=== PATIENT | female | born 1985 | race Caucasian/White ===

== ENCOUNTER 2018-03-02 10:55 | Emergency (ER) | payer OTHER ==
[~2018-03-02] VITALS: Ht 149.9 cm; Wt 59.0 kg
[~2018-03-02 10:55] MED LIST: ACETAMINOPHEN-1 EAC1 PO; ALBUTEROL; AMOXICILLIN500 M1 PO; CARAFATE 1 GM TA1 GM PO; CELEXA 20 MG TA20 MG; CIPRO500 MG PO; CIPROFLOXACIN500 M1 PO; DOXYCYCLINE 10100 MG PO; FLAGYL500 MG PO; FLOMAX0.4 MG PO; HYDROCODON-ACE1 EACH PO; HYDROCODONE-AP1 EAC6 PO; HYDROCODONE-APA1 TA1 PO; IBUPROFEN 800800 M1 PO; LEVAQUIN 500 M500 M2 PO; NAPROSYN500 MG PO; NEURONTIN 400400 M1 PO; NOHOMEMEDICATIONS; NORCO 5-325 TA1 EACH PO; ONDANSETRON HCL4 M2 PO; PERCOCET 5-3251 EACH PO; PHENERGAN25 MG RECTAL; POTASSIUM CHLORIDE PO; PRENATAL PO; PROAIR HFA8.5 GM INH; PYRIDIUM100 M1 PO; REMERON15 MG PO; TRAZADONE; ULTRAM 50MG TAB50 MG PO; VENTOLIN HFA 1818 GM INH; VICODIN ES TAB1 EACH PO; ZOFRAN4 MG PO; ZOLOFT 50 MG TA50 M1 PO
[2018-03-02] MEDS ORDERED: LEXAPRO 10 MG T10 M2 PO (11:03)
[2018-03-02] MEDS ORDERED: BUSPIRONE HCL10 MG PO (11:03)
[2018-03-02 11:32] LABS: ABSOLUTE BASOPHILS 0.1 thou/uL (0.0-0.2); ABSOLUTE LYMPHOCYTES 1.4 thou/uL (0.8-5.3); ABSOLUTE MONOCYTES 0.4 thou/uL (0.0-1.2); ABSOLUTE NEUTROPHILS 7.3 thou/uL (1.6-8.1); BASOPHILS 0.6 %; EOSINOPHILS 0.2 %; HEMATOCRIT 39.4 % (37.0-47.0); HEMOGLOBIN 13.7 gm/dL (12.0-15.0); LYMPHOCYTES 15.6 %; MCH 30.3 pg (26.0-34.0); MCHC 34.7 g/dL (28.0-37.0); MCV 87.6 fL (80.0-100.0); MONOCYTES 4.2 %; NUCLEATED RBCS 0 /100WBC; PLATELET COUNT* 348 thou/uL (150-400); POLYS 79.4 %; RDW-CV 12.7 % (10.5-14.5); WBC 9.2 thou/uL (4.0-11.0)
[2018-03-02 11:43] LABS: ANION GAP 11 mmol/L (7-16); BUN 13 mg/dL (7-18); CALCIUM 9.2 mg/dL (8.5-10.1); CHLORIDE 101 mmol/L (98-107); CO2 25 mmol/L (21-32); CREATININE 0.7 mg/dL (0.6-1.3); GLUCOSE 116 mg/dL (70-99); POTASSIUM 3.7 mmol/L (3.5-5.1); SODIUM 137 mmol/L (136-145)
[2018-03-02 11:57] LABS: ALBUMIN 4.2 g/dL (3.4-5.0); ALKALINE PHOSPHATASE 92 U/L (46-116); LIPASE 77 U/L (73-393); MAGNESIUM 1.7 mg/dL (1.8-2.4); NT-PRO BRAIN NAT PEPTIDE 58 pg/mL (<300); SGOT 19 U/L (15-37); SGPT 36 U/L (30-65); TOTAL BILIRUBIN 0.3 mg/dL (<0.1-1.0); TROPONIN-I LEVEL <0.06 ng/mL (<0.06)
[2018-03-02] MEDS ORDERED: HYDROXYZINE HCL50 MG PO (13:09)
[2018-03-02 13:57] VITALS: BP 122/78
--- NOTE | 2018-03-04 10:21 | EKG ---
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
--- NOTE | 2018-03-04 10:24 | EKG ---
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
== END 2018-03-02 14:00 | disposition home or self-care (01) ==
LOC: M.ERS 10:55
PROVIDERS: Emergency Medicine Emergency Medical Services
DX: F41.9 Anxiety disorder, unspecified (principal); J45.909 Unspecified asthma, uncomplicated; F32.9 Major depressive disorder, single episode, unspecified; F17.210 Nicotine dependence, cigarettes, uncomplicated; Z91.010 Allergy to peanuts; Z90.49 Acquired absence of other specified parts of digestive tract; Z87.442 Personal history of urinary calculi

== ENCOUNTER 2018-05-26 19:33 | Emergency (ER) | payer OTHER ==
[~2018-05-26] VITALS: Ht 149.9 cm; Wt 57.6 kg
[~2018-05-26 19:33] MED LIST changes: +BUSPIRONE HCL10 MG PO; +HYDROXYZINE HCL50 MG PO; +LEXAPRO 10 MG T10 M2 PO
[2018-05-26] MEDS ORDERED: DEPAKOTE ER500 MG PO (19:48)
[2018-05-26] MEDS ORDERED: SEROQUEL 50 MG50 MG PO (19:49)
[2018-05-26 20:14] LABS: URINE BILIRUBIN NEGATIVE (Negative); URINE BLOOD 3+ (Negative); URINE CLARITY CLEAR; URINE COLOR YELLOW; URINE GLUCOSE-RANDOM NEGATIVE (Negative); URINE KETONES TRACE (Negative); URINE LEUKOCYTES-REFLEX TRACE (Negative); URINE PROTEIN 3+ (Negative); URINE SPECIFIC GRAVITY >= 1.030 (1.005-1.030); URINE UROBILINOGEN 0.2 E.U./dl (0.2-1.0)
[2018-05-26 20:17] LABS: URINE NITRITE-REFLEX POSITIVE (Negative)
[2018-05-26 20:19] LABS: BACTERIA-REFLEX >30 Many /HPF (None Seen); SQUAMOUS NONE SEEN /LPF (0-3); URINE WBC-REFLEX >25 Many /HPF (0-5)
[2018-05-26 20:20] LABS: CASTS None Seen /LPF (None Seen); CRYSTALS None Seen /LPF (None Seen)
[2018-05-26 21:07] LABS: ABSOLUTE BASOPHILS 0.1 thou/uL (0.0-0.2); ABSOLUTE EOSINOPHILS 0.2 thou/uL (0.0-0.7); ABSOLUTE LYMPHOCYTES 3.3 thou/uL (0.8-5.3); ABSOLUTE MONOCYTES 0.7 thou/uL (0.0-1.2); ABSOLUTE NEUTROPHILS 7.2 thou/uL (1.6-8.1); BASOPHILS 1.3 %; EOSINOPHILS 1.9 %; HEMATOCRIT 35.9 % (37.0-47.0); HEMOGLOBIN 12.3 gm/dL (12.0-15.0); LYMPHOCYTES 28.4 %; MCH 30.3 pg (26.0-34.0); MCHC 34.1 g/dL (28.0-37.0); MCV 88.9 fL (80.0-100.0); MONOCYTES 5.8 %; MPV 7.9 fl. (7.2-11.1); NUCLEATED RBCS 0 /100WBC; PLATELET COUNT* 295 thou/uL (150-400); POLYS 62.6 %; RBC 4.04 mil/uL (4.20-5.00); RDW-CV 13.1 % (10.5-14.5); WBC 11.5 thou/uL (4.0-11.0)
[2018-05-26 21:19] LABS: ALBUMIN 3.4 g/dL (3.4-5.0); CALCIUM 8.9 mg/dL (8.5-10.1); CREATININE 0.8 mg/dL (0.6-1.3); POTASSIUM 3.4 mmol/L (3.5-5.1); TOTAL BILIRUBIN 0.1 mg/dL (<0.1-1.0)
[2018-05-26] MEDS ORDERED: BACTRIM DS TAB1 EACH PO (21:33)
[2018-05-26] MEDS ORDERED: ACETAMINOPHEN-1 EAC1 PO (21:33)
[2018-05-26] MEDS ORDERED: PYRIDIUM100 M1 PO (21:33)
[2018-05-26] MEDS ORDERED: NORCO 5-325 TA1 EAC1 PO (22:06)
[2018-05-26 22:27] VITALS: BP 110/63
== END 2018-05-26 22:32 | disposition home or self-care (01) ==
LOC: M.ERS 19:33
PROVIDERS: Nurse Practitioner Family; Physician Assistant
DX: N39.0 Urinary tract infection, site not specified (principal); J45.909 Unspecified asthma, uncomplicated; F32.9 Major depressive disorder, single episode, unspecified; F17.210 Nicotine dependence, cigarettes, uncomplicated; Z90.49 Acquired absence of other specified parts of digestive tract; Z87.442 Personal history of urinary calculi; Z91.010 Allergy to peanuts

== ENCOUNTER 2018-10-08 23:08 | Emergency (ER) | payer OTHER ==
[~2018-10-08] VITALS: Ht 149.9 cm; Wt 68.0 kg
[~2018-10-08 23:08] MED LIST changes: +BACTRIM DS TAB1 EACH PO; +DEPAKOTE ER500 MG PO; +NORCO 5-325 TA1 EAC1 PO; +SEROQUEL 50 MG50 MG PO
[2018-10-08 23:36] LABS: ABSOLUTE BASOPHILS 0.1 thou/uL (0.0-0.2); ABSOLUTE EOSINOPHILS 0.9 thou/uL (0.0-0.7); ABSOLUTE LYMPHOCYTES 2.6 thou/uL (0.8-5.3); ABSOLUTE MONOCYTES 0.9 thou/uL (0.0-1.2); ABSOLUTE NEUTROPHILS 5.5 thou/uL (1.6-8.1); BASOPHILS 0.7 %; EOSINOPHILS 8.7 %; HEMATOCRIT 40.4 % (37.0-47.0); LYMPHOCYTES 26.6 %; MCH 29.9 pg (26.0-34.0); MCHC 34.5 g/dL (28.0-37.0); MCV 86.7 fL (80.0-100.0); MONOCYTES 9.1 %; MPV 7.8 fl. (7.2-11.1); NUCLEATED RBCS 0 /100WBC; PLATELET COUNT* 378 thou/uL (150-400); POLYS 54.9 %; RBC 4.66 mil/uL (4.20-5.00); RDW-CV 12.4 % (10.5-14.5); WBC 9.9 thou/uL (4.0-11.0)
[2018-10-08 23:48] LABS: ANION GAP 6 mmol/L (7-16); BUN 8 mg/dL (7-18); CALCIUM 9.8 mg/dL (8.5-10.1); CHLORIDE 103 mmol/L (98-107); CO2 33 mmol/L (21-32); CREATININE 0.7 mg/dL (0.6-1.3); GLUCOSE 115 mg/dL (70-99); POTASSIUM 3.3 mmol/L (3.5-5.1); SODIUM 142 mmol/L (136-145)
[2018-10-08 23:49] LABS: PROTIME 10.2 Seconds (9.20-11.50)
[2018-10-09] LABS: ALKALINE PHOSPHATASE 113 U/L (46-116); NT-PRO BRAIN NAT PEPTIDE 14 pg/mL (<300); SGOT 18 U/L (15-37); SGPT 53 U/L (30-65); TOTAL BILIRUBIN 0.3 mg/dL (<0.1-1.0); TOTAL PROTEIN 7.9 g/dL (6.4-8.2); TROPONIN-I LEVEL <0.06 ng/mL (<0.06)
[2018-10-09 00:10] LABS: URINE BILIRUBIN NEGATIVE (Negative); URINE BLOOD NEGATIVE (Negative); URINE CLARITY CLEAR; URINE COLOR YELLOW; URINE GLUCOSE-RANDOM NEGATIVE (Negative); URINE KETONES NEGATIVE (Negative); URINE LEUKOCYTES-REFLEX NEGATIVE (Negative); URINE NITRITE-REFLEX NEGATIVE (Negative); URINE PROTEIN NEGATIVE (Negative); URINE UROBILINOGEN 0.2 E.U./dl (0.2-1.0)
[2018-10-09] MEDS ORDERED: ATIVAN1 MG PO (00:46)
[2018-10-09 00:56] VITALS: BP 117/70
--- NOTE | 2018-10-09 17:16 | EKG ---
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
== END 2018-10-09 00:57 | disposition home or self-care (01) ==
LOC: M.ERS 23:08
PROVIDERS: Emergency Medicine
DX: F19.939 Other psychoactive substance use, unspecified with withdrawal, unspecified (principal); R41.82 Altered mental status, unspecified; J45.909 Unspecified asthma, uncomplicated; F32.9 Major depressive disorder, single episode, unspecified; F17.210 Nicotine dependence, cigarettes, uncomplicated; Z87.442 Personal history of urinary calculi; Z91.010 Allergy to peanuts

== ENCOUNTER 2019-07-06 02:46 | Emergency (ER) | payer OTHER ==
[~2019-07-06] VITALS: Ht 144.8 cm; Wt 40.8 kg
[~2019-07-06 02:46] MED LIST changes: +ATIVAN1 MG PO
[2019-07-06 03:38] LABS: ABSOLUTE BASOPHILS 0.1 thou/uL (0.0-0.2); ABSOLUTE EOSINOPHILS 0.2 thou/uL (0.0-0.7); ABSOLUTE LYMPHOCYTES 2.4 thou/uL (0.8-5.3); ABSOLUTE NEUTROPHILS 10.1 thou/uL (1.6-8.1); BASOPHILS 0.9 %; EOSINOPHILS 1.4 %; HEMATOCRIT 38.7 % (37.0-47.0); HEMOGLOBIN 13.6 gm/dL (12.0-15.0); LYMPHOCYTES 17.2 %; MCH 30.2 pg (26.0-34.0); MCHC 35.1 g/dL (28.0-37.0); MCV 86.2 fL (80.0-100.0); MONOCYTES 7.5 %; MPV 7.9 fl. (7.2-11.1); NUCLEATED RBCS 0 /100WBC; PLATELET COUNT* 358 thou/uL (150-400); RBC 4.48 mil/uL (4.20-5.00); RDW-CV 12.5 % (10.5-14.5); WBC 13.9 thou/uL (4.0-11.0)
[2019-07-06 03:52] LABS: CALCIUM 9.3 mg/dL (8.5-10.1); CREATININE 0.8 mg/dL (0.6-1.3); POTASSIUM 3.7 mmol/L (3.5-5.1)
[2019-07-06 03:55] LABS: SALICYLATE < 2.8 mg/dL (2.8-20.0)
[2019-07-06 03:56] LABS: ALBUMIN 4.3 g/dL (3.4-5.0); TOTAL BILIRUBIN 0.4 mg/dL (<0.1-1.0); TOTAL PROTEIN 8.1 g/dL (6.4-8.2)
[2019-07-06 04:06] LABS: ACETAMINOPHEN < 2 ug/mL (10-30); ALCOHOL < 10 mg/dL (<10)
[2019-07-06 04:09] LABS: AMP/METHAMP POSITIVE (Negative); BARBITURATES Negative (Negative); BENZODIAZEPINES Negative (Negative); COCAINE Negative (Negative); METHADONE Negative (Negative); OPIATES Negative (Negative); PCP Negative (Negative); THC POSITIVE (Negative); URINE BILIRUBIN NEGATIVE (Negative); URINE BLOOD 1+ (Negative); URINE CLARITY CLEAR; URINE COLOR YELLOW; URINE GLUCOSE-RANDOM NEGATIVE (Negative); URINE KETONES NEGATIVE (Negative); URINE LEUKOCYTES-REFLEX 1+ (Negative); URINE NITRITE-REFLEX NEGATIVE (Negative); URINE PROTEIN 1+ (Negative); URINE SPECIFIC GRAVITY >= 1.030 (1.005-1.030); URINE UROBILINOGEN 0.2 E.U./dl (0.2-1.0)
[2019-07-06 04:21] LABS: CASTS None Seen /LPF (None Seen); SQUAMOUS 4-10 Moderate /LPF (0-3)
[2019-07-06 04:22] LABS: URINE WBC-REFLEX >25 Many /HPF (0-5)
[2019-07-06 04:23] LABS: BACTERIA-REFLEX >30 Many /HPF (None Seen); CRYSTALS None Seen /LPF (None Seen); URINE RBC 3-10 Few /HPF (0-2)
[2019-07-07] MEDS ORDERED: CIPROFLOXACIN500 M1 PO (12:21)
[2019-07-07 15:32] VITALS: BP 107/64
--- NOTE | 2019-07-07 16:32 | EKG ---
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: [facility] : 1985 Requested By: Amarilis Hendricks Order Number: [id number] : Madhav Alexander Measurements Intervals [place] Rate: 83 P: 56 [place]: 135 QRS: 53 QRSD: 85 T: 26 QT: 389 QTc: 457 Interpretive Statements Sinus rhythm Compared to ECG 10/08/2018 23:12:19 No significant changes Electronically Signed On 07-07-2019 16:31:21 CDT by Madhav Alexander [email or web address] <ELECTRONICALLY SIGNED> By: Madhav Alexander MD, [facility] 07/07/19 1631 1259 1259 Madhav Alexander MD, FACC /EPI
== END 2019-07-07 15:32 ==
LOC: M.ERS 02:46
PROVIDERS: Emergency Medicine Emergency Medical Services
DX: F23 Brief psychotic disorder (principal); F15.10 Other stimulant abuse, uncomplicated; J45.909 Unspecified asthma, uncomplicated; F32.9 Major depressive disorder, single episode, unspecified; F17.210 Nicotine dependence, cigarettes, uncomplicated; Z90.49 Acquired absence of other specified parts of digestive tract; Z87.442 Personal history of urinary calculi; Z91.010 Allergy to peanuts

== ENCOUNTER 2019-12-25 05:49 | Emergency (ER) | payer OTHER ==
[~2019-12-25] VITALS: Ht 144.8 cm; Wt 45.4 kg
[2019-12-25 06:45] LABS: URINE BILIRUBIN NEGATIVE (Negative); URINE BLOOD NEGATIVE (Negative); URINE CLARITY CLOUDY; URINE COLOR YELLOW; URINE GLUCOSE-RANDOM NEGATIVE (Negative); URINE KETONES NEGATIVE (Negative); URINE LEUKOCYTES-REFLEX TRACE (Negative); URINE NITRITE-REFLEX NEGATIVE (Negative); URINE PROTEIN NEGATIVE (Negative); URINE SPECIFIC GRAVITY 1.025 (1.005-1.030)
[2019-12-25 06:52] LABS: SQUAMOUS >10 Many /LPF (0-3)
[2019-12-25 06:53] LABS: URINE RBC None Seen /HPF (0-2)
[2019-12-25 06:54] LABS: MUCUS >6 Heavy strn/LPF (None Seen)
[2019-12-25 06:56] LABS: CASTS None Seen /LPF (None Seen); CRYSTALS None Seen /LPF (None Seen)
[2019-12-25] MEDS ORDERED: BACTRIM DS TAB1 EACH PO (06:58)
[2019-12-25] MEDS ORDERED: FLAGYL500 M1 PO (06:58)
[2019-12-25 07:14] VITALS: BP 109/67
== END 2019-12-25 07:13 | disposition home or self-care (01) ==
LOC: M.ERS 05:49
PROVIDERS: Emergency Medicine
DX: N76.0 Acute vaginitis (principal); N39.0 Urinary tract infection, site not specified; F15.10 Other stimulant abuse, uncomplicated; J45.909 Unspecified asthma, uncomplicated; F32.9 Major depressive disorder, single episode, unspecified; F17.210 Nicotine dependence, cigarettes, uncomplicated; Z90.49 Acquired absence of other specified parts of digestive tract; Z87.442 Personal history of urinary calculi; Z98.51 Tubal ligation status; Z85.43 Personal history of malignant neoplasm of ovary; Z91.010 Allergy to peanuts

== ENCOUNTER 2020-01-04 11:01 | Emergency (ER) | payer OTHER ==
[~2020-01-04] VITALS: Ht 144.8 cm; Wt 45.4 kg
[~2020-01-04 11:01] MED LIST changes: +FLAGYL500 M1 PO
[2020-01-04 11:46] LABS: HEMATOCRIT 39.7 % (37.0-47.0); MCH 31.1 pg (26.0-34.0); MCHC 35.3 g/dL (28.0-37.0); MCV 88.2 fL (80.0-100.0); MPV 7.3 fl. (7.2-11.1); RBC 4.5 mil/uL (4.20-5.00); RDW-CV 13.8 % (10.5-14.5); WBC 10.2 thou/uL (4.0-11.0)
[2020-01-04 11:55] LABS: CALCIUM 8.8 mg/dL (8.5-10.1); CREATININE 0.6 mg/dL (0.6-1.3); POTASSIUM 3.6 mmol/L (3.5-5.1)
[2020-01-04 11:59] LABS: ALBUMIN 4.1 g/dL (3.4-5.0); TOTAL BILIRUBIN 0.4 mg/dL (<0.1-1.0); TOTAL PROTEIN 7.9 g/dL (6.4-8.2)
[2020-01-04 12:04] LABS: ALCOHOL < 10 mg/dL (<10); SALICYLATE < 2.8 mg/dL (2.8-20.0)
[2020-01-04 12:05] LABS: ACETAMINOPHEN < 2 ug/mL (10-30)
[2020-01-04 13:21] LABS: URINE BILIRUBIN NEGATIVE (Negative); URINE BLOOD NEGATIVE (Negative); URINE CLARITY CLEAR; URINE COLOR YELLOW; URINE GLUCOSE-RANDOM NEGATIVE (Negative); URINE KETONES NEGATIVE (Negative); URINE LEUKOCYTES NEGATIVE (Negative); URINE NITRITE NEGATIVE (Negative); URINE PROTEIN NEGATIVE (Negative); URINE UROBILINOGEN 0.2 E.U./dl (0.2-1.0)
[2020-01-04 13:25] LABS: AMP/METHAMP POSITIVE (Negative); BARBITURATES Negative (Negative); BENZODIAZEPINES Negative (Negative); COCAINE Negative (Negative); METHADONE Negative (Negative); OPIATES Negative (Negative); PCP Negative (Negative); THC Negative (Negative)
[2020-01-04 16:46] VITALS: BP 100/68
== END 2020-01-04 16:46 | disposition still patient (30) ==
LOC: M.ERS 11:01
PROVIDERS: Personal Emergency Response Attendant
DX: F24 Shared psychotic disorder (principal); J45.909 Unspecified asthma, uncomplicated; F31.9 Bipolar disorder, unspecified; Z91.010 Allergy to peanuts; Z87.442 Personal history of urinary calculi; Z98.51 Tubal ligation status; Z90.49 Acquired absence of other specified parts of digestive tract; Z79.899 Other long term (current) drug therapy

== ENCOUNTER 2020-03-29 20:42 | Emergency (ER) | payer OTHER ==
[~2020-03-29] VITALS: Ht 149.9 cm; Wt 45.4 kg
[2020-03-29 21:47] LABS: URINE BILIRUBIN NEGATIVE (Negative); URINE BLOOD 3+ (Negative); URINE CLARITY CLEAR; URINE COLOR YELLOW; URINE GLUCOSE-RANDOM NEGATIVE (Negative); URINE KETONES TRACE (Negative); URINE PROTEIN 1+ (Negative); URINE SPECIFIC GRAVITY 1.015 (1.005-1.030); URINE UROBILINOGEN 0.2 E.U./dl (0.2-1.0)
[2020-03-29 21:48] LABS: URINE LEUKOCYTES-REFLEX 2+ (Negative); URINE NITRITE-REFLEX POSITIVE (Negative)
[2020-03-29 22:04] LABS: CASTS None Seen /LPF (None Seen); MUCUS 4-6 Moderate strn/LPF (None Seen); SQUAMOUS 4-10 Moderate /LPF (0-3)
[2020-03-29 22:06] LABS: BACTERIA-REFLEX >30 Many /HPF (None Seen); URINE RBC 3-10 Few /HPF (0-2); URINE WBC-REFLEX >25 Many /HPF (0-5)
[2020-03-29 22:07] LABS: CRYSTALS None Seen /LPF (None Seen)
[2020-03-29 23:37] VITALS: BP 114/75
== END 2020-03-29 23:38 | disposition home or self-care (01) ==
LOC: M.ERS 20:42
PROVIDERS: Nurse Practitioner Family
DX: N12 Tubulo-interstitial nephritis, not specified as acute or chronic (principal); J45.909 Unspecified asthma, uncomplicated; F17.210 Nicotine dependence, cigarettes, uncomplicated; Z91.010 Allergy to peanuts; Z90.49 Acquired absence of other specified parts of digestive tract; Z87.442 Personal history of urinary calculi; Z98.51 Tubal ligation status